=== PATIENT | female | born 1980 | race Caucasian/White ===

== ENCOUNTER 2021-11-25 16:14 | Outpatient (REF) | payer OTHER, SELFPAY ==
--- NOTE | ~2021-11-25 | MR_ITS ---
EXAMINATION: MR BRAIN WITHOUT AND WITH CONTRAST CLINICAL INFORMATION: Monoparesis. COMPARISON: None available. TECHNIQUE: Multiplanar, multisequence imaging of the brain was performed before and after the intravenous administration of 9 mL of Gadavist. FINDINGS: There is no acute infarction, mass, hemorrhage, or extra-axial collection. No abnormal or unexpected intracranial enhancement is seen. The ventricles, sulci, and basilar cisterns are normal in size and configuration. The flow voids of the major intracranial arteries appear intact. The bones and extracranial soft tissues are within normal limits. MR/MR head/brain wo/w con IMPRESSION: No mass lesion, acute infarction, or abnormal intracranial enhancement.
== END 2021-11-25 16:15 | disposition home or self-care (01) ==
LOC: HO.MRI 16:14
PROVIDERS: PCP Internal Medicine; Visit Provider Internal Medicine
DX: G83.30 Monoplegia, unspecified affecting unspecified side (principal)
CPT/HCPCS: 70553; A9585

== ENCOUNTER 2021-12-16 17:53 | Outpatient (REF) | payer OTHER, SELFPAY ==
--- NOTE | ~2021-12-16 | MR_ITS ---
EXAMINATION: MR CERVICAL SPINE WITHOUT AND WITH CONTRAST MR THORACIC SPINE WITHOUT AND WITH CONTRAST CLINICAL INFORMATION: Monoparesis. Right sided leg weakness. COMPARISON: Brain MRI from 12/05/2021. TECHNIQUE: MRI of the cervical and thoracic spine was obtained using routine sequences without and following the administration of 9 mL of Gadavist intravenous contrast. FINDINGS: Cervical Spine: Reversal the normal cervical lordosis. Mild degenerative retrolistheses of C4 on C5 and C5 on C6. . Advanced degenerative disc disease at C4-C5 and C5-C6. Moderate degenerative disc disease at C3-C4 and C6-C7. Associated mixed Modic type discogenic endplate changes including Modic type I discogenic edema from C3-C7. No additional suspicious marrow edema. The vertebral body heights are largely maintained. There is mild to moderate T2 hyperintensity within the cord at the level of C6. No additional spinal cord signal abnormalities. No abnormal contrast enhancement. Limited evaluation of the soft tissues of the neck without demonstrated abnormalities. The flow voids of the major cervical vessels are maintained. Normal appearance of the cervicomedullary junction and visualized posterior fossa. SPINAL LEVELS: C2-C3: Mild disc-osteophyte complex. There is no uncovertebral joint arthropathy. There is mild bilateral facet joint arthropathy. There is mild right and no left neural foraminal stenosis. There is no spinal canal stenosis. C3-C4: Mild disc-osteophyte complex. There is mild right and no left uncovertebral joint arthropathy. There is mild bilateral facet joint arthropathy. There is mild right and no left neural foraminal stenosis. There is no spinal canal stenosis. C4-C5: Moderate disc-osteophyte complex. There is moderate right and mild left uncovertebral joint arthropathy. There is mild bilateral facet joint arthropathy. There is moderate right and mild left neural foraminal stenosis. There is flattening of the cord with moderate spinal canal stenosis. C5-C6: Moderate disc-osteophyte complex. There is moderate left and mild right uncovertebral joint arthropathy. There is moderate bilateral facet joint arthropathy. There is moderate left and mild right neural foraminal stenosis. There is indentation of the ventral cord with moderate spinal canal stenosis. C6-C7: Moderate disc-osteophyte complex with superimposed right central disc extrusion with superior migration. There is moderate left and mild right uncovertebral joint arthropathy. There is moderate bilateral facet joint arthropathy. There is moderate left and mild right neural foraminal stenosis. There is indentation of the right ventral cord with severe spinal canal stenosis. C7-T1: Normal annular contour. There is no uncovertebral joint arthropathy. There is mild bilateral facet joint arthropathy. There is no neural foraminal stenosis. There is no spinal canal stenosis. Thoracic Spine: Mild right convex curvature of the thoracic spine. Otherwise, normal anatomic alignment. Mild to moderate degenerative disc disease from T3-T11 (most notably from T6-T9). Associated mild mixed Modic type discogenic endplate changes. No additional suspicious marrow edema. Small Schmorl's node in the inferior endplate of T8. Otherwise, the vertebral body heights are largely maintained. No significant abnormalities of the thoracic spinal cord. No abnormal contrast enhancement. No significant abnormalities of the paraspinal musculature. Limited evaluation of the intrathoracic structures without significant abnormalities. The descending thoracic aorta is of normal contour and caliber. AXIAL SPINAL LEVELS: Minimal multilevel posterior disc herniations from T3-T9. There is mild multilevel facet joint arthropathy. There is no neural foraminal stenosis. There is no spinal canal stenosis. MR/MR cervical spine wo/w con IMPRESSION: 1. Prominent right central disc extrusion at C6-C7 indents the cord and causes severe spinal canal stenosis at this level. 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 2. This is superimposed on moderate to advanced multilevel degenerative spondyloarthropathy of the cervical spine as described in detail above. Most notably, there are also moderate spinal canal stenoses at C4-C5 and C5-C6. Moderate neural foraminal stenoses from C4-C7. No additional spinal cord signal abnormalities. 3. 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 No overt thoracic spinal canal stenosis or nerve root compression.
== END 2021-12-16 17:54 | disposition home or self-care (01) ==
LOC: HO.MRI 17:53
PROVIDERS: Visit Provider Psychiatry & Neurology Neurology
DX: G83.30 Monoplegia, unspecified affecting unspecified side (principal)
CPT/HCPCS: 72156; 72157; A9585